=== PATIENT | female | born 1965 | race Caucasian/White ===

== ENCOUNTER 2021-10-03 20:58 | Emergency (ER) | payer SELFPAY ==
[2021-10-03 21:37] VITALS: BP 139/80; PULSE 88; TEMP 98.6; BMI 44.2
== END 2021-10-03 21:54 | disposition home or self-care (01) ==
LOC: FER 20:58
DX: J45.20 Mild intermittent asthma, uncomplicated (principal)
CPT/HCPCS: 99281-25

== ENCOUNTER 2021-10-20 20:43 | Emergency (ER) | payer SELFPAY ==
[2021-10-20 20:59] VITALS: BP 144/96; PULSE 100; TEMP 98.4; BMI 44.2
== END 2021-10-20 21:08 | disposition home or self-care (01) ==
LOC: FER 20:43
DX: Z76.0 Encounter for issue of repeat prescription (principal)
CPT/HCPCS: 99281-25